=== PATIENT | male | born 1925 | race Two or more races ===

== ENCOUNTER 2017-04-12 20:29 | Emergency (ER) | payer OTHER ==
[~2017-04-12] VITALS: Ht 160 cm; Wt 56.2 kg
[~2017-04-12 20:29] MED LIST: LOTREL 10-20 M1 EACH PO; SYNTHROID75 MCG PO; TAMS0.4C PO
== END 2017-04-12 23:05 | disposition home or self-care (01) ==
LOC: ER 20:29
DX: N40.1 Benign prostatic hyperplasia with lower urinary tract symptoms (principal); R33.8 Other retention of urine